=== PATIENT | female | born 2000 | race Two or more races ===

== ENCOUNTER 2024-07-21 18:02 | Inpatient (IN) | payer OTHER ==
[~2024-07-21] VITALS: Ht 162.6 cm; Wt 86.2 kg
[2024-07-21 17:14] VITALS: BP 117/77
[2024-07-21] MEDS ORDERED: RINGERS SOLUTION,LACTATED 1,000 ML IV SCH (18:30)
[2024-07-21] MEDS ORDERED: BETAMETHASONE ACETATE,SOD PHOS 30 MG/5 ML ML IM ONE (18:30)
[2024-07-21] MEDS ORDERED: AMPICILLIN SODIUM 2,000 MG VIAL IV ONE (18:30)
[2024-07-21] MEDS ORDERED: IRON325 MG PO (18:37)
[2024-07-21] MEDS ORDERED: FOLIC ACID20 MG PO (18:38)
[2024-07-21 19:17] LABS: PH,URINE 5.5 (5.0-8.0); URINE APPEARANCE Clear; URINE BILIRRUBIN Negative (NEGATIVE); URINE BLOOD Negative; URINE COLOR Yellow; URINE GLUCOSE Negative (NEGATIVE); URINE KETONE Negative (NEGATIVE); URINE LEUKOCYTE Negative; URINE NITRATE Negative; URINE PROTEIN Negative (NEGATIVE); URINE UROBILINOGEN 0.2 E.U./dl
[2024-07-21 19:18] LABS: HEMATOCRIT 34.7 % (36.0-45.00); HEMOGLOBIN 11.9 g/dL (12.0-15.00); MEAN CELL VOLUME 85.9 fL (80.00-100.00); MEAN CORPUSCULAR HEMOGLOBIN 29.3 pg (27.00-32.0); MEAN CORPUSCULAR HGB CONC 34.1 g/dl (32.0-36.0); PLATELET COUNT 169 K/uL (150-450); RED BLOOD COUNT 4.04 M/uL (4.00-6.00); RED CELL DISTRIBUTION WIDTH 13.8 % (11.5-14.5)
[2024-07-21 19:22] LABS: URINE BACTERIA 170.1 uL (0.0-1933); URINE CAST 0.15 uL (0.0-1.40); URINE EPITHELIAL CELLS 24.3 uL (0.0-38.8); URINE RBC 2.4 uL (0.0-20.8); URINE WBC 6.6 uL (0.0-23.2)
[2024-07-21 19:44] LABS: ALBUMIN 2.7 gm/dL (3.4-5.0); BILIRUBIN TOTAL 0.22 mg/dL (0.3-1.2); CALCIUM 9.3 mg/dL (8.5-10.1); CREATININE SERUM 0.6 mg/dL (0.55-1.02); GFR 122.82; GLOBULINA 3.1 G/DL (2.4-3.5); POTASSIUM 4.16 mEq/L (3.5-5.1); TOTAL PROTEIN 5.8 gm/dL (6.4-8.2)
[2024-07-21 20:05] LABS: INR 0.95; PARTIAL THROMBOPLASTIN TIME 25.2 SECONDS (22.0-34.0); PROTHROMBIN TIME 9.9 SECONDS (9.0-11.5)
[2024-07-21 20:20] VITALS: BP 126/72
[2024-07-21 22:43] LABS: RH POSITIVE
[2024-07-21 23:03] VITALS: BP 110/72
[2024-07-22] MEDS ORDERED: AMPICILLIN SODIUM 1,000 MG in DEXTROSE 5 % IN WATER 100 ML IV SCH
[2024-07-22 02:41] VITALS: BP 106/67
[2024-07-22 07:29] VITALS: BP 117/77
[2024-07-22] MEDS ORDERED: NIFEDIPINE 30 MG TAB.SA.OSM PO SCH (09:00)
[2024-07-22] MEDS ORDERED: PNV,CALCIUM 72/IRON/FOLIC ACID 1 TAB TABLET PO SCH (09:00)
[2024-07-22] MEDS ORDERED: IRON/V.C/V.B12/FOLIC A/VIT. E 1 CAPL CAPLET PO SCH (09:00)
[2024-07-22 12:00] VITALS: BP 103/70
[2024-07-22 15:24] VITALS: BP 109/70
[2024-07-22 15:48] LABS: RAPID PLASMA REAGIN NONREACTIVE BY RPR (NONREACTIVE)
[2024-07-22] MEDS ORDERED: BETAMETHASONE ACETATE,SOD PHOS 30 MG/5 ML ML IM ONE (18:30)
[2024-07-22 20:37] VITALS: BP 105/70
[2024-07-22 23:26] VITALS: BP 122/66
[2024-07-23 03:34] VITALS: BP 108/64; O2SAT 99
[2024-07-23 07:15] VITALS: BP 115/70
[2024-07-23 12:08] VITALS: BP 105/68
[2024-07-23 15:33] VITALS: BP 119/66
[2024-07-23 20:03] VITALS: BP 120/78
== END 2024-07-23 19:21 | disposition left against medical advice (07) | DRG 833 ==
LOC: LDR 18:02
PROVIDERS: ADMIT Obstetrics & Gynecology; ATTEND Obstetrics & Gynecology
PROC: 4A1HXCZ Monitoring of Products of Conception, Cardiac Rate, External Approach (ICD-10-PCS; principal; 2024-07-21)
PROC: BY4FZZZ Ultrasonography of Third Trimester, Single Fetus (ICD-10-PCS; 2024-07-21)
DX: O26.853 Spotting complicating pregnancy, third trimester (principal); Z3A.32 32 weeks gestation of pregnancy; Z20.822 Contact with and (suspected) exposure to COVID-19; Z53.29 Procedure and treatment not carried out because of patient's decision for other reasons